=== PATIENT | female | born 1990 | race African-American/Black ===

== ENCOUNTER 2016-05-17 19:41 | Emergency (ER) | payer OTHER ==
--- NOTE | ~2016-05-17 | CT71 ---
[facility] A Service of [facility] RADIOLOGY TEXT RESULTS PATIENT: HUBER PACHECO LOCATION: [place] : 88 UNIT #: [id number] AGE: [address]: Stas Martin MD SEX: F ORDER DR: [id number] [facility] [address] [place], [place] [address] [id number] E MR#: [id number] Acc #: [id number] NAME: HUBER PACHECO : 1990 SEX: F STUDY DATE/TIME: 05/17/2016 20:21 UNIT: [place] ROOM: STUDY DESCRIPTION: CT Head Wo Contrast Attending Physician: Stas Martin M.D. Ordering Physician: Stas Martin M.D. Primary Care Physician: [facility] MEDICAL IMAGING REPORT This report is preliminary unless electronic signature is present EXAM CT brain without contrast. DATE OF EXAM 05/17/2016 HISTORY Seizure today. Fell. TECHNIQUE NOTE: This CT exam was performed with one or more of the following radiation dose reduction techniques: automatic exposure control, adjustment of mA and/or kV according to patient size, and iterative reconstruction. FINDINGS Axial noncontrast images were obtained from the skull base to the vertex. Ventricular size and configuration are normal. There is no evidence of acute infarct or hemorrhage. There are no extra-axial fluid collections. No mass lesion or mass effect is seen. There are no skull fractures. IMPRESSION Normal noncontrast head CT. Dictated by... Tobin Rider M.D. THIS IS AN ELECTRONICALLY VERIFIED REPORT Tobin Rider M.D. at 05/19/2016 12:05 AM ANNIE/maico TD: 05/17/2016 23:20 [facility] A Service of [facility] RADIOLOGY TEXT RESULTS PATIENT: HUBER PACHECO LOCATION: [place] : 88 UNIT #: [id number] AGE: [address]: Stas Martin MD SEX: F ORDER DR: JOB #: [id number] MEDICAL IMAGING REPORT COPY
--- NOTE | ~2016-05-17 | EKG ---
PATIENT: HUBER PACHECO UNIT #: [id number] Ventricular Rate: 74 BPM Atrial Rate: 74 BPM P-R Interval: 168 ms QRS Duration: 86 ms Q-T Interval: 408 ms QTC Calculation(Bezet): 452 ms P [place]: 6 degrees Calculated R [place]: 24 degrees Calculated T [place]: 15 degrees Diagnosis Line: Normal sinus rhythm with sinus arrhythmia Diagnosis Line: Minimal voltage criteria for LVH, may be normal Diagnosis Line: variant Diagnosis Line: Borderline ECG Diagnosis Line: When compared with ECG of 17-MAY-2016 21:32, Diagnosis Line: (unconfirmed) Diagnosis Line: No significant change was found Diagnosis Line: Confirmed by LEELEE BERNARD MD ([id number]) on Diagnosis Line: 05/18/2016 10:51:21 PM INTERPRETING MD: BEE
[2016-05-17 19:53] LABS: BASOPHIL% 0.6 % (0-2.5); EOSINOPHIL% 0.6 % (0.0-7.0); HEMATOCRIT 36.9 % (35.0-45.0); HEMOGLOBIN 11.7 gm/dL (12.0-16.0); LYMPHOCYTE# 1.2 X10e3 (1.0-3.5); LYMPHOCYTE% 16.8 % (17.0-45.0); MEAN CELL VOLUME 70.8 FL (83-96); MEAN CORPUSCULAR HEMOGLOBIN 22.4 PG (28-34); MEAN CORPUSCULAR HGB CONC 31.7 g/dL (30-36); MEAN PLATELET VOLUME 7.8 FL (6.5-11.5); MONOCYTE# 0.4 X10e3 (0-1.0); NEUTROPHIL# 5.5 X10e3 (1.5-7.1); PLATELET COUNT 269 X10e3 (140-420); RED BLOOD COUNT 5.21 X10e (3.90-5.30); RED CELL DISTRIBUTION WIDTH 15.4 % (11.0-15.5); WHITE BLOOD COUNT 7.2 X10e3 (4.0-10.5)
[2016-05-17 19:57] LABS: DIFF IND NO
[2016-05-17 20:11] LABS: BLOOD UREA NITROGEN 7 mg/dL (9-23); CALCIUM SERUM 8.6 mg/dL (8.4-10.2); CARBON DIOXIDE 23 mmol/L (22-31); CHLORIDE 105 mmol/L (100-111); CREATININE SERUM 0.7 mg/dL (0.6-1.4); GLOM FILT RATE Estimated ABOVE60 mL/min (>60); GLUCOSE FASTING 182 mg/dL (70-110); SODIUM 137 mmol/L (135-145)
[2016-05-17 20:19] LABS: AMPHETAMINE NEG (NEG); BARBITURATES NEG (NEG); BENZODIAZEPINES NEG (NEG); COCAINE NEG (NEG); MARIJUANA NEG (NEG); OPIATES NEG (NEG); TRICYCLIC ANTIDEPRESSANTS NEG (NEG); U METHADONE NEG (NEG)
== END 2016-05-17 21:58 | disposition home or self-care (01) ==
LOC: CED 19:41
PROVIDERS: Emergency Medicine
DX: F41.9 Anxiety disorder, unspecified (principal); E11.9 Type 2 diabetes mellitus without complications; J45.909 Unspecified asthma, uncomplicated
CPT/HCPCS: 36415; 70450; 80048; 80307; 82947; 84703; 85025; 93005; 99284

== ENCOUNTER 2016-05-31 20:20 | Emergency (ER) | payer OTHER ==
--- NOTE | ~2016-05-31 | EKG ---
PATIENT: HUBER PACHECO UNIT #: [id number] Ventricular Rate: 91 BPM Atrial Rate: 91 BPM P-R Interval: 152 ms QRS Duration: 72 ms Q-T Interval: 346 ms QTC Calculation(Bezet): 425 ms P [place]: 43 degrees Calculated R [place]: 39 degrees Calculated T [place]: 33 degrees Diagnosis Line: Normal sinus rhythm with sinus arrhythmia Diagnosis Line: Normal ECG Diagnosis Line: No previous ECGs available Diagnosis Line: Confirmed by ISAIAH DIAZ MD ([id number]) on Diagnosis Line: 06/02/2016 12:04:34 AM INTERPRETING MD: JOE DELA CRUZ
== END 2016-05-31 21:12 | disposition home or self-care (01) ==
LOC: CED 20:20
DX: F41.0 Panic disorder [episodic paroxysmal anxiety] (principal); F41.9 Anxiety disorder, unspecified; E11.9 Type 2 diabetes mellitus without complications; J45.909 Unspecified asthma, uncomplicated
CPT/HCPCS: 93005; 99283

== ENCOUNTER 2016-06-23 06:02 | Emergency (ER) | payer OTHER ==
[2016-06-23 03:31] LABS: BASOPHIL# 0.1 X10e3 (0-0.3); BASOPHIL% 1.1 % (0-2.5); EOSINOPHIL% 0.5 % (0.0-7.0); HEMATOCRIT 40.5 % (35.0-45.0); HEMOGLOBIN 12.8 gm/dL (12.0-16.0); LYMPHOCYTE# 2.2 X10e3 (1.0-3.5); LYMPHOCYTE% 27.4 % (17.0-45.0); MEAN CELL VOLUME 71.2 FL (83-96); MEAN CORPUSCULAR HEMOGLOBIN 22.5 PG (28-34); MEAN CORPUSCULAR HGB CONC 31.6 g/dL (30-36); MONOCYTE# 0.5 X10e3 (0-1.0); MONOCYTE% 5.8 % (3.0-12.0); NEUTROPHIL# 5.2 X10e3 (1.5-7.1); NEUTROPHIL% 65.2 % (40-75); PLATELET COUNT 285 X10e3 (140-420); RED BLOOD COUNT 5.69 X10e (3.90-5.30)
[2016-06-23 03:34] LABS: DIFF IND NO
[2016-06-23 03:58] LABS: ALBUMIN SERUM 4.1 g/dL (3.5-5.0); BILIRUBIN, DIRECT 0.1 mg/dL (0.0-0.2); BILIRUBIN,INDIRECT 0.4 mg/dL (0.0-0.9); BILIRUBIN,TOTAL 0.5 mg/dL (0.2-2.0); CALCIUM SERUM 9.3 mg/dL (8.4-10.2); CREATININE SERUM 0.4 mg/dL (0.6-1.4); GLOM FILT RATE Estimated 165.5 mL/min (>60); POTASSIUM 4.3 mmol/L (3.5-5.1); PROTEIN TOTAL SERUM 7.9 g/dL (6.0-8.3)
== END 2016-06-23 06:10 | disposition left against medical advice (07) ==
LOC: CED 06:02
PROVIDERS: Student in an Organized Health Care Education/Training Program
DX: Z53.21 Procedure and treatment not carried out due to patient leaving prior to being seen by health care provider (principal)
CPT/HCPCS: 80048; 80076; 82150; 83690; 85025

== ENCOUNTER 2016-07-02 14:15 | Emergency (ER) | payer OTHER ==
--- NOTE | ~2016-07-02 | EKG ---
PATIENT: HUBER PACHECO UNIT #: [id number] Ventricular Rate: 73 BPM Atrial Rate: 73 BPM P-R Interval: 146 ms QRS Duration: 82 ms Q-T Interval: 368 ms QTC Calculation(Bezet): 405 ms P [place]: 9 degrees Calculated R [place]: 49 degrees Calculated T [place]: 13 degrees Diagnosis Line: Normal sinus rhythm Diagnosis Line: Normal ECG Diagnosis Line: When compared with ECG of 31-MAY-2016 19:26, Diagnosis Line: No significant change was found Diagnosis Line: Confirmed by RALPH TURNER MD ([id number]) on 07/03/2016 Diagnosis Line: 8:00:03 PM INTERPRETING MD: YUE DELA CRUZ
--- NOTE | ~2016-07-02 | CR63 ---
[facility] A Service of [facility] & [facility] RADIOLOGY TEXT RESULTS PATIENT: HUBER PACHECO LOCATION: [facility] : [birth year] UNIT #: [id number] AGE: [address]: Jia Garcia SEX: F ORDER DR: [id number] [facility] [address] [place], [place] [address] [id number] E MR#: [id number] Acc #: [id number] NAME: HUBER PACHECO : 1990 SEX: F STUDY DATE/TIME: 07/02/2016 14:34 UNIT: [facility] ROOM: STUDY DESCRIPTION: CR Chest 2 View Attending Physician: Jia Garcia P.A.-C. Ordering Physician: Jia Garcia P.A.-C. Primary Care Physician: [facility] MEDICAL IMAGING REPORT This report is preliminary unless electronic signature is present EXAM PA and lateral chest HISTORY Chest pain after running and fever for 2 days. FINDINGS A PA and lateral view of the chest were obtained and compared to 05/09/2016. The heart size and vascularity are normal and the lungs are clear and the bones are unremarkable. IMPRESSION No active disease. Dictated by... Sanjay Green M.D. THIS IS AN ELECTRONICALLY VERIFIED REPORT Sanjay Green M.D. at 07/02/2016 3:58 PM Collins TD: 07/02/2016 15:21 JOB #: [id number] MEDICAL IMAGING REPORT Page 1 of 1 COPY
[2016-07-02 14:44] LABS: BASOPHIL% 0.5 % (0-2.5); DIFF IND NO; EOSINOPHIL% 0.7 % (0.0-7.0); HEMATOCRIT 37.8 % (35.0-45.0); HEMOGLOBIN 11.9 gm/dL (12.0-16.0); LYMPHOCYTE# 1.7 X10e3 (1.0-3.5); LYMPHOCYTE% 31.7 % (17.0-45.0); MEAN CELL VOLUME 71.2 FL (83-96); MEAN CORPUSCULAR HEMOGLOBIN 22.4 PG (28-34); MEAN CORPUSCULAR HGB CONC 31.4 g/dL (30-36); MEAN PLATELET VOLUME 7.8 FL (6.5-11.5); MONOCYTE# 0.4 X10e3 (0-1.0); MONOCYTE% 7.6 % (3.0-12.0); NEUTROPHIL# 3.2 X10e3 (1.5-7.1); NEUTROPHIL% 59.5 % (40-75); PLATELET COUNT 285 X10e3 (140-420); RED BLOOD COUNT 5.31 X10e (3.90-5.30); RED CELL DISTRIBUTION WIDTH 15.8 % (11.0-15.5); WHITE BLOOD COUNT 5.4 X10e3 (4.0-10.5)
[2016-07-02 14:44] LABS: POC - CKMB <1.0 ng/mL (0.0-7.9); POC - TROPONIN <0.05 ng/mL (<=0.05)
[2016-07-02 15:09] LABS: BUN/CREATININE RATIO 11.25; CREATININE SERUM 0.8 mg/dL (0.6-1.4); GLOM FILT RATE Estimated 117.2 mL/min (>60); POTASSIUM 4.1 mmol/L (3.5-5.1)
== END 2016-07-02 15:55 | disposition home or self-care (01) ==
LOC: CFTX 14:15
PROVIDERS: Physician Assistant
DX: J98.01 Acute bronchospasm (principal); E11.9 Type 2 diabetes mellitus without complications; G40.909 Epilepsy, unspecified, not intractable, without status epilepticus
CPT/HCPCS: 36415; 71020; 80048; 82553; 82947; 84484; 85025; 93005; 94640; 96372; 99284; J2930

== ENCOUNTER 2016-07-09 16:43 | Emergency (ER) | payer OTHER ==
[2016-07-09 16:16] LABS: URINE SOURCE CLEAN CATCH
[2016-07-09 16:25] LABS: URINE APPEARANCE CLEAR; URINE BILIRUBIN NEG (NEG); URINE BLOOD 2+ (NEG); URINE COLOR YELLOW; URINE GLUCOSE NEG (NEG); URINE KETONE NEG (NEG); URINE LEUKOCYTE ESTERASE TRACE (NEG); URINE NITRATE NEG (NEG); URINE PH 7.5 (5-8); URINE PROTEIN NEG (NEG); URINE SPECIFIC GRAVITY 1.014 (1.003-1.035); URINE UROBILINOGEN 0.2 MG/DL (NEG)
[2016-07-09 16:26] LABS: BASOPHIL% 0.9 % (0-2.5); EOSINOPHIL% 0.7 % (0.0-7.0); HEMOGLOBIN 11.3 gm/dL (12.0-16.0); LYMPHOCYTE# 1.7 X10e3 (1.0-3.5); LYMPHOCYTE% 31.8 % (17.0-45.0); MEAN CELL VOLUME 70.5 FL (83-96); MEAN CORPUSCULAR HEMOGLOBIN 22.6 PG (28-34); MEAN CORPUSCULAR HGB CONC 32.1 g/dL (30-36); MEAN PLATELET VOLUME 7.5 FL (6.5-11.5); MONOCYTE# 0.4 X10e3 (0-1.0); MONOCYTE% 7.3 % (3.0-12.0); NEUTROPHIL# 3.2 X10e3 (1.5-7.1); NEUTROPHIL% 59.3 % (40-75); PLATELET COUNT 284 X10e3 (140-420); RED BLOOD COUNT 4.97 X10e (3.90-5.30); RED CELL DISTRIBUTION WIDTH 15.5 % (11.0-15.5); WHITE BLOOD COUNT 5.4 X10e3 (4.0-10.5)
[2016-07-09 16:28] LABS: CULTURE INDICATED? YES; URINE BACTERIA AUWI 1+ (NEGATIVE); URINE SQUAMOUS EPITHELIAL CELL FEW /[HPF]; UWBCS1 AUWI 0-2 (0-5)
[2016-07-09 16:31] LABS: DIFF IND NO
[2016-07-09 16:46] LABS: ALBUMIN SERUM 3.7 g/dL (3.5-5.0); ALKALINE PHOSPHATASE 96 U/L (32-92); ALT (SGPT) 20 U/L (10-40); AST (SGOT) 20 U/L (10-42); BILIRUBIN,TOTAL 0.3 mg/dL (0.2-2.0); BLOOD UREA NITROGEN 8 mg/dL (9-23); BUN/CREATININE RATIO 11.42; CALCIUM SERUM 9.1 mg/dL (8.4-10.2); CARBON DIOXIDE 25 mmol/L (22-31); CHLORIDE 102 mmol/L (100-111); CREATININE SERUM 0.7 mg/dL (0.6-1.4); GLOM FILT RATE Estimated 137.6 mL/min (>60); GLUCOSE FASTING 110 mg/dL (70-110); POTASSIUM 3.8 mmol/L (3.5-5.1); PROTEIN TOTAL SERUM 7.2 g/dL (6.0-8.3); SODIUM 137 mmol/L (135-145)
[2016-07-09 16:48] LABS: BILIRUBIN, DIRECT <0.1 mg/dL (0.0-0.2); BILIRUBIN,INDIRECT 0.2 mg/dL (0.0-0.9)
== END 2016-07-09 17:08 | disposition home or self-care (01) ==
LOC: CFTX 16:43
PROVIDERS: Physician Assistant
DX: N30.00 Acute cystitis without hematuria (principal); E11.9 Type 2 diabetes mellitus without complications; J45.909 Unspecified asthma, uncomplicated; F41.9 Anxiety disorder, unspecified
CPT/HCPCS: 36415; 80048; 80076; 81003; 84703; 85025; 87086; 99283

== ENCOUNTER 2016-07-14 20:22 | Emergency (ER) | payer OTHER ==
--- NOTE | ~2016-07-14 | CR58 ---
[facility] A Service of [facility] & [facility] RADIOLOGY TEXT RESULTS PATIENT: HUBER PACHECO LOCATION: [facility] : [birth year] UNIT #: [id number] AGE: [address]: Tyrone Dowling DO SEX: F ORDER DR: [id number] [facility] [address] [place], [place] [address] [id number] E MR#: [id number] Acc #: [id number] NAME: HUBER PACHECO : 1990 SEX: F STUDY DATE/TIME: 07/14/2016 19:34 UNIT: [facility] ROOM: STUDY DESCRIPTION: CR Cervical Spine 2 or 3 Views Attending Physician: Tyrone Dowling D.O. Ordering Physician: Tyrone Dowling D.O. Primary Care Physician: Lyudmila [facility] MEDICAL IMAGING REPORT This report is preliminary unless electronic signature is present EXAM Cervical spine 5 views, 07/14/2016 HISTORY Neck pain table fell on top of patient at 10:00 a.m. this morning. FINDINGS PA and lateral examination of the chest upright shows a good expansion of the parenchyma with a normal distribution of the pulmonary vascularity. There is no indication of congestion, effusion, infiltrate, tumor, or nodular density. The pleural reflections and diaphragmatic contours are normal. The cardiac silhouette and mediastinal anatomy is within normal limits. IMPRESSION Normal chest. Dictated by... Elijah Mckenzie M.D. THIS IS AN ELECTRONICALLY VERIFIED REPORT Elijah Mckenzie M.D. at 07/15/2016 7:30 AM Arin TD: 07/14/2016 23:28 JOB #: [id number] MEDICAL IMAGING REPORT Page 1 of 1 COPY
--- NOTE | ~2016-07-14 | EKG ---
PATIENT: HUBER PACHECO UNIT #: [id number] Ventricular Rate: 93 BPM Atrial Rate: 93 BPM P-R Interval: 148 ms QRS Duration: 72 ms Q-T Interval: 358 ms QTC Calculation(Bezet): 445 ms P [place]: 41 degrees Calculated R [place]: 47 degrees Calculated T [place]: 15 degrees Diagnosis Line: Normal sinus rhythm with sinus arrhythmia Diagnosis Line: Normal ECG Diagnosis Line: When compared with ECG of 02-JUL-2016 14:51, Diagnosis Line: No significant change was found Diagnosis Line: Confirmed by RALPH TURNER MD ([id number]) on 07/14/2016 Diagnosis Line: 10:36:28 PM INTERPRETING MD: YUE DELA CRUZ
--- NOTE | ~2016-07-14 | CT71 ---
[facility] A Service of [facility] RADIOLOGY TEXT RESULTS PATIENT: HUBER PACHECO LOCATION: [place] : [birth year] UNIT #: [id number] AGE: [address]: Tyrone Dowling DO SEX: F ORDER DR: [id number] [facility] [address] [place], [place] [address] [id number] E MR#: [id number] Acc #: [id number] NAME: HUBER PACHECO : 1990 SEX: F STUDY DATE/TIME: 07/14/2016 19:17 UNIT: [facility] ROOM: STUDY DESCRIPTION: CT Head Wo Contrast Attending Physician: Tyrone Dowling D.O. Ordering Physician: Tyrone Dowling D.O. Primary Care Physician: [facility] MEDICAL IMAGING REPORT This report is preliminary unless electronic signature is present EXAM Head CT without contrast, 07/14/2016. HISTORY Headache, status post fall on steps, hit head today. No loss of consciousness. This CT exam was performed with one or more of the following radiation dose reduction techniques: automatic exposure control, adjustment of mA and/or kV according to patient size, and iterative reconstruction. FINDINGS Axial noncontrast images were obtained from the skull base to the vertex. Ventricular size and configuration are normal. There is no evidence of acute infarct or hemorrhage. There are no extra-axial fluid collections. No mass lesion or mass effect is seen. There are no skull fractures. IMPRESSION Normal noncontrast head CT. Dictated by... Elijah Mckenzie M.D. THIS IS AN ELECTRONICALLY VERIFIED REPORT Elijah Mckenzie M.D. at 07/15/2016 7:30 AM ARNAV/miah TD: 07/14/2016 23:13 JOB #: [id number] MEDICAL IMAGING REPORT [facility] A Service [facility] RADIOLOGY TEXT RESULTS PATIENT: HUBER PACHECO LOCATION: [place] : [birth year] UNIT #: [id number] AGE: [address]: Tyrone Dowling DO SEX: F ORDER DR: Page 1 of 1 COPY
--- NOTE | ~2016-07-14 | CT57 ---
[facility] A Service of [facility] RADIOLOGY TEXT RESULTS PATIENT: HUBER PACHECO LOCATION: [facility] : [birth year] UNIT #: [id number] AGE: [address]: Tyrone Dowling DO SEX: F ORDER DR: [id number] [facility] [address] [place], [place] [address] [id number] E MR#: [id number] Acc #: [id number] NAME: HUBER PACHECO : 1990 SEX: F STUDY DATE/TIME: 07/14/2016 19:22 UNIT: [facility] ROOM: STUDY DESCRIPTION: CT Chest Wo Cont Attending Physician: Tyrone Dowling D.O. Ordering Physician: Tyrone Dowling D.O. Primary Care Physician: [facility] MEDICAL IMAGING REPORT This report is preliminary unless electronic signature is present EXAM CT chest without contrast. HISTORY Chest pain after table fell on patient to day. TECHNIQUE This CT exam was performed with one or more of the following radiation dose reduction techniques: automatic exposure control, adjustment of mA and/or kV according to patient size, and iterative reconstruction. FINDINGS There is no pulmonary infiltrate, pleural effusion, pneumothorax or suspicious nodule. There is no mediastinal mass or adenopathy. Images of the upper abdomen are normal. The bony structures are normal. IMPRESSION Normal negative unenhanced chest CT. Dictated by... Jonah Daniel M.D. THIS IS AN ELECTRONICALLY VERIFIED REPORT Jonah Daniel M.D. at 07/16/2016 9:42 AM SHAWN/murray TD: 07/14/2016 23:10 JOB #: [id number] MEDICAL IMAGING REPORT Page 1 of 1 COPY
[2016-07-14 16:36] LABS: BASOPHIL# 0.1 X10e3 (0-0.3); EOSINOPHIL# 0.1 X10e3 (0-0.7); HEMATOCRIT 39.4 % (35.0-45.0); HEMOGLOBIN 12.6 gm/dL (12.0-16.0); LYMPHOCYTE# 1.5 X10e3 (1.0-3.5); LYMPHOCYTE% 26.9 % (17.0-45.0); MEAN CELL VOLUME 70.7 FL (83-96); MEAN CORPUSCULAR HEMOGLOBIN 22.7 PG (28-34); MEAN CORPUSCULAR HGB CONC 32.1 g/dL (30-36); MEAN PLATELET VOLUME 7.6 FL (6.5-11.5); MONOCYTE# 0.3 X10e3 (0-1.0); MONOCYTE% 5.2 % (3.0-12.0); NEUTROPHIL# 3.6 X10e3 (1.5-7.1); NEUTROPHIL% 65.9 % (40-75); PLATELET COUNT 292 X10e3 (140-420); RED BLOOD COUNT 5.57 X10e (3.90-5.30); RED CELL DISTRIBUTION WIDTH 15.5 % (11.0-15.5); WHITE BLOOD COUNT 5.5 X10e3 (4.0-10.5)
[2016-07-14 16:37] LABS: DIFF IND NO
[2016-07-14 16:45] LABS: PARTIAL THROMBOPLASTIN TIME 26.4 SECONDS (23.5-31.3); PROTHROMBIN TIME (PATIENT) 10.3 SECONDS (9.6-11.5)
[2016-07-14 17:00] LABS: ALBUMIN SERUM 4.1 g/dL (3.5-5.0); ALKALINE PHOSPHATASE 120 U/L (32-92); ALT (SGPT) 20 U/L (10-40); AST (SGOT) 21 U/L (10-42); BILIRUBIN,TOTAL 0.4 mg/dL (0.2-2.0); BLOOD UREA NITROGEN 6 mg/dL (9-23); BUN/CREATININE RATIO 8.57; CALCIUM SERUM 9.7 mg/dL (8.4-10.2); CARBON DIOXIDE 26 mmol/L (22-31); CHLORIDE 101 mmol/L (100-111); CREATININE SERUM 0.7 mg/dL (0.6-1.4); GLOM FILT RATE Estimated 137.6 mL/min (>60); GLUCOSE FASTING 209 mg/dL (70-110); POTASSIUM 4.5 mmol/L (3.5-5.1); PROTEIN TOTAL SERUM 7.7 g/dL (6.0-8.3); SODIUM 138 mmol/L (135-145)
[2016-07-14 17:03] LABS: BILIRUBIN, DIRECT <0.1 mg/dL (0.0-0.2); BILIRUBIN,INDIRECT 0.3 mg/dL (0.0-0.9)
== END 2016-07-14 21:17 | disposition home or self-care (01) ==
LOC: CED 20:22
DX: S09.90XA Unspecified injury of head, initial encounter (principal); S13.4XXA Sprain of ligaments of cervical spine, initial encounter; S20.219A Contusion of unspecified front wall of thorax, initial encounter; I10 Essential (primary) hypertension; W01.0XXA Fall on same level from slipping, tripping and stumbling without subsequent striking against object, initial encounter
CPT/HCPCS: 70450; 71250; 72040; 80048; 80076; 85025; 85610; 85730; 93005; 96372; 99284; J1885

== ENCOUNTER 2016-07-26 01:56 | Emergency (ER) | payer OTHER | END 2016-07-26 02:00 | disposition home or self-care (01) | LOC: CED 01:56 | DX: K59.00 Constipation, unspecified (principal); E11.9 Type 2 diabetes mellitus without complications; J45.909 Unspecified asthma, uncomplicated; F41.9 Anxiety disorder, unspecified | CPT/HCPCS: 99283 ==

== ENCOUNTER 2016-08-06 02:22 | Emergency (ER) | payer OTHER ==
--- NOTE | ~2016-08-06 | CR63 ---
[facility] A Service of [facility] RADIOLOGY TEXT RESULTS PATIENT: HUBER PACHECO LOCATION: [place] : [birth year] UNIT #: [id number] AGE: [address]: Lis Brown APRN SEX: F ORDER DR: [id number] [facility] [address] [place], [place] [address] [id number] E MR#: [id number] Acc #: [id number] NAME: HUBER PACHECO : 1990 SEX: F STUDY DATE/TIME: 08/06/2016 03:09 UNIT: [facility] ROOM: STUDY DESCRIPTION: CR Chest 2 View Attending Physician: Lis Brown A.P.R.N. Ordering Physician: Lis Brown A.P.R.N. Primary Care Physician: [facility] MEDICAL IMAGING REPORT This report is preliminary unless electronic signature is present EXAM Chest x-ray, 08/06/2016 at 03:09 INDICATION Cough, chest pain and headache for 2-3 days. COMPARISON 07/02/2016 FINDINGS PA and lateral examination of the chest upright shows a good expansion of the parenchyma with a normal distribution of the pulmonary vascularity. There is no indication of congestion, effusion, infiltrate, tumor, or nodular density. The pleural reflections and diaphragmatic contours are normal. The cardiac silhouette and mediastinal anatomy is within normal limits. IMPRESSION Normal chest. Dictated by... Shahzad Patton Jr., M.D. THIS IS AN ELECTRONICALLY VERIFIED REPORT Shahzad Patton Jr., M.D. at 08/06/2016 5:56 AM RIGO/miah TD: 08/06/2016 05:19 JOB #: [id number] MEDICAL IMAGING REPORT [facility] A Service of [facility] RADIOLOGY TEXT RESULTS PATIENT: HUBER PAHCECO LOCATION: [facility] : 88 UNIT #: [id number] AGE: [address]: Lis Brown APRN SEX: F ORDER DR: Page 1 of 1 COPY
--- NOTE | ~2016-08-06 | EKG ---
PATIENT: HUBER PACHECO UNIT #: [id number] Ventricular Rate: 100 BPM Atrial Rate: 100 BPM P-R Interval: 160 ms QRS Duration: 72 ms Q-T Interval: 334 ms QTC Calculation(Bezet): 430 ms P [place]: 44 degrees Calculated R [place]: 35 degrees Calculated T [place]: 14 degrees Diagnosis Line: Normal sinus rhythm Diagnosis Line: Nonspecific T wave abnormality Diagnosis Line: Otherwise normal ECG Diagnosis Line: Diagnosis Line: Confirmed by RITA PELAEZ MD ([id number]) on 08/07/2016 Diagnosis Line: 10:35:22 AM INTERPRETING MD: BENIGNO DELA CRUZ
[2016-08-06 03:30] LABS: EOSINOPHIL% 1.2 % (0.0-7.0); HEMATOCRIT 37.5 % (35.0-45.0); HEMOGLOBIN 12.4 gm/dL (12.0-16.0); LYMPHOCYTE# 1.1 X10e3 (1.0-3.5); LYMPHOCYTE% 27.5 % (17.0-45.0); MEAN CELL VOLUME 69.8 FL (83-96); MEAN CORPUSCULAR HGB CONC 32.9 g/dL (30-36); MEAN PLATELET VOLUME 7.8 FL (6.5-11.5); MONOCYTE# 0.3 X10e3 (0-1.0); MONOCYTE% 8.3 % (3.0-12.0); NEUTROPHIL# 2.4 X10e3 (1.5-7.1); PLATELET COUNT 245 X10e3 (140-420); RED BLOOD COUNT 5.37 X10e (3.90-5.30); RED CELL DISTRIBUTION WIDTH 15.5 % (11.0-15.5); WHITE BLOOD COUNT 3.9 X10e3 (4.0-10.5)
[2016-08-06 03:31] LABS: DIFF IND NO
[2016-08-06 03:34] LABS: POC - CKMB <1.0 ng/mL (0.0-7.9); POC - TROPONIN <0.05 ng/mL (<=0.05)
[2016-08-06 03:42] LABS: AMPHETAMINE NEG (NEG); BARBITURATES NEG (NEG); BENZODIAZEPINES NEG (NEG); COCAINE NEG (NEG); MARIJUANA NEG (NEG); OPIATES NEG (NEG); TRICYCLIC ANTIDEPRESSANTS NEG (NEG); U METHADONE NEG (NEG)
[2016-08-06 03:47] LABS: PARTIAL THROMBOPLASTIN TIME 25.8 SECONDS (23.5-31.3)
[2016-08-06 03:57] LABS: ALBUMIN SERUM 4.1 g/dL (3.5-5.0); BILIRUBIN, DIRECT 0.1 mg/dL (0.0-0.2); BILIRUBIN,INDIRECT 0.3 mg/dL (0.0-0.9); BILIRUBIN,TOTAL 0.4 mg/dL (0.2-2.0); BUN/CREATININE RATIO 12.5; CALCIUM SERUM 9.5 mg/dL (8.4-10.2); CREATININE SERUM 0.8 mg/dL (0.6-1.4); GLOM FILT RATE Estimated 117.2 mL/min (>60); POTASSIUM 4.1 mmol/L (3.5-5.1); PROTEIN TOTAL SERUM 7.7 g/dL (6.0-8.3)
[2016-08-06 04:19] LABS: URINE SOURCE CLEAN CATCH
[2016-08-06 04:22] LABS: URINE APPEARANCE CLEAR; URINE BILIRUBIN NEG (NEG); URINE BLOOD NEG (NEG); URINE COLOR YELLOW; URINE GLUCOSE NEG (NEG); URINE KETONE NEG (NEG); URINE LEUKOCYTE ESTERASE NEG (NEG); URINE NITRATE NEG (NEG); URINE PH 5.5 (5-8); URINE PROTEIN NEG (NEG); URINE SPECIFIC GRAVITY 1.016 (1.003-1.035); URINE UROBILINOGEN 0.2 MG/DL (NEG)
[2016-08-06 04:27] LABS: CULTURE INDICATED? NO
== END 2016-08-06 06:34 | disposition home or self-care (01) ==
LOC: CED 02:22
PROVIDERS: Nurse Practitioner
DX: R07.89 Other chest pain (principal); J06.9 Acute upper respiratory infection, unspecified; E11.9 Type 2 diabetes mellitus without complications; J45.909 Unspecified asthma, uncomplicated
CPT/HCPCS: 36415; 71020; 80048; 80076; 80307; 81003; 82150; 82553; 82947; 83690; 84484; 84703; 85025; 85379; 85610; 85730; 93005; 96374; 99284; J1885

== ENCOUNTER 2016-08-14 18:04 | Emergency (ER) | payer OTHER ==
[2016-08-14 18:54] LABS: URINE SOURCE CLEAN CATCH
[2016-08-14 19:22] LABS: URINE APPEARANCE CLOUDY; URINE BILIRUBIN NEG (NEG); URINE BLOOD TRACE (NEG); URINE COLOR YELLOW; URINE GLUCOSE NEG (NEG); URINE KETONE NEG (NEG); URINE LEUKOCYTE ESTERASE TRACE (NEG); URINE NITRATE NEG (NEG); URINE PH 7.5 (5-8); URINE PROTEIN NEG (NEG); URINE SPECIFIC GRAVITY 1.015 (1.003-1.035)
[2016-08-14 19:24] LABS: CULTURE INDICATED? YES; URINE BACTERIA AUWI 2+ (NEGATIVE); URINE SQUAMOUS EPITHELIAL CELL MOD /[HPF]
[2016-08-14 23:24] LABS: BASOPHIL% 0.7 % (0-2.5); EOSINOPHIL% 0.5 % (0.0-7.0); HEMATOCRIT 38.6 % (35.0-45.0); HEMOGLOBIN 12.4 gm/dL (12.0-16.0); LYMPHOCYTE# 2.1 X10e3 (1.0-3.5); LYMPHOCYTE% 35.8 % (17.0-45.0); MEAN CELL VOLUME 70.6 FL (83-96); MEAN CORPUSCULAR HEMOGLOBIN 22.7 PG (28-34); MEAN CORPUSCULAR HGB CONC 32.1 g/dL (30-36); MEAN PLATELET VOLUME 7.9 FL (6.5-11.5); MONOCYTE# 0.3 X10e3 (0-1.0); MONOCYTE% 5.6 % (3.0-12.0); NEUTROPHIL# 3.4 X10e3 (1.5-7.1); NEUTROPHIL% 57.4 % (40-75); PLATELET COUNT 274 X10e3 (140-420); RED BLOOD COUNT 5.46 X10e (3.90-5.30); RED CELL DISTRIBUTION WIDTH 15.8 % (11.0-15.5); WHITE BLOOD COUNT 5.9 X10e3 (4.0-10.5)
[2016-08-14 23:26] LABS: DIFF IND NO
[2016-08-14 23:50] LABS: ALBUMIN SERUM 4.3 g/dL (3.5-5.0); BILIRUBIN, DIRECT 0.1 mg/dL (0.0-0.2); BILIRUBIN,INDIRECT 0.3 mg/dL (0.0-0.9); BILIRUBIN,TOTAL 0.4 mg/dL (0.2-2.0); BUN/CREATININE RATIO 7.5; CALCIUM SERUM 9.2 mg/dL (8.4-10.2); CREATININE SERUM 0.8 mg/dL (0.6-1.4); GLOM FILT RATE Estimated 117.2 mL/min (>60); POTASSIUM 3.9 mmol/L (3.5-5.1); PROTEIN TOTAL SERUM 7.9 g/dL (6.0-8.3)
== END 2016-08-15 00:30 | disposition home or self-care (01) ==
LOC: CED 18:04
PROVIDERS: Emergency Medicine
DX: R11.10 Vomiting, unspecified (principal); R19.7 Diarrhea, unspecified; E11.9 Type 2 diabetes mellitus without complications; J45.909 Unspecified asthma, uncomplicated
CPT/HCPCS: 80048; 80076; 81003; 82150; 83690; 84703; 85025; 87086; 96361; 96374; 96375; 99284; J2405

== ENCOUNTER 2016-09-03 21:19 | Emergency (ER) | payer OTHER ==
--- NOTE | ~2016-09-03 | EKG ---
PATIENT: HUBER PACHECO UNIT #: [id number] Ventricular Rate: 78 BPM Atrial Rate: 78 BPM P-R Interval: 162 ms QRS Duration: 74 ms Q-T Interval: 372 ms QTC Calculation(Bezet): 424 ms P [place]: 34 degrees Calculated R [place]: 37 degrees Calculated T [place]: 32 degrees Diagnosis Line: Normal sinus rhythm Diagnosis Line: Early repolarization Diagnosis Line: Normal ECG Diagnosis Line: No previous ECGs available Diagnosis Line: Confirmed by OSCAR CLAUDIO MD ([id number]) on Diagnosis Line: 09/05/2016 3:46:52 PM INTERPRETING MD: IVETT
--- NOTE | ~2016-09-03 | CR72 ---
[facility] A Service of [facility] RADIOLOGY TEXT RESULTS PATIENT: HUBER PACHECO LOCATION: [facility] : [birth year] UNIT #: [id number] AGE: [address]: Shahzad Green MD SEX: F ORDER DR: [id number] [facility] [address] [place], [place] [address] [id number] E MR#: [id number] Acc #: [id number] NAME: HUBER PACHECO : 1990 SEX: F STUDY DATE/TIME: 09/03/2016 22:12 UNIT: [facility] ROOM: STUDY DESCRIPTION: CR Chest Single View Portable Attending Physician: Shahzad Green M.D. Ordering Physician: Shahzad Green M.D. Primary Care Physician: [facility] MEDICAL IMAGING REPORT This report is preliminary unless electronic signature is present EXAM Portable chest. INDICATIONS Chest pain after exercising three times today. DATE OF EXAM 09/03 COMPARISON 08/23/16 FINDINGS A portable view of the chest is obtained. The heart size and vascularity are normal and the lungs are clear. The bones are unremarkable. IMPRESSION No active disease. Dictated by... Sanjay Green M.D. THIS IS AN ELECTRONICALLY VERIFIED REPORT Sanjay Green M.D. at 09/04/2016 1:21 PM ALVARO/maico TD: 09/03/2016 23:03 JOB #: [id number] MEDICAL IMAGING REPORT [facility] A Service of [facility] RADIOLOGY TEXT RESULTS PATIENT: HUBER PACHECO LOCATION: [facility] : [birth year] UNIT #: [id number] AGE: [address]: Shahzad Green MD SEX: F ORDER DR: Page 1 of 1 COPY
[2016-09-03 22:50] LABS: BASOPHIL# 0.1 X10e3 (0-0.3); BASOPHIL% 1.5 % (0-2.5); DIFF IND NO; EOSINOPHIL# 0.1 X10e3 (0-0.7); EOSINOPHIL% 0.7 % (0.0-7.0); HEMATOCRIT 39.1 % (35.0-45.0); HEMOGLOBIN 12.4 gm/dL (12.0-16.0); LYMPHOCYTE# 2.1 X10e3 (1.0-3.5); LYMPHOCYTE% 27.3 % (17.0-45.0); MEAN CELL VOLUME 71.5 FL (83-96); MEAN CORPUSCULAR HEMOGLOBIN 22.6 PG (28-34); MEAN CORPUSCULAR HGB CONC 31.6 g/dL (30-36); MEAN PLATELET VOLUME 7.8 FL (6.5-11.5); MONOCYTE# 0.6 X10e3 (0-1.0); MONOCYTE% 7.7 % (3.0-12.0); NEUTROPHIL# 4.8 X10e3 (1.5-7.1); NEUTROPHIL% 62.8 % (40-75); PLATELET COUNT 312 X10e3 (140-420); RED BLOOD COUNT 5.47 X10e (3.90-5.30); RED CELL DISTRIBUTION WIDTH 15.3 % (11.0-15.5); WHITE BLOOD COUNT 7.7 X10e3 (4.0-10.5)
[2016-09-03 23:01] LABS: POC - CKMB <1.0 ng/mL (0.0-7.9); POC - TROPONIN <0.05 ng/mL (<=0.05)
[2016-09-03 23:16] LABS: BILIRUBIN,TOTAL 0.4 mg/dL (0.2-2.0); CALCIUM SERUM 9.1 mg/dL (8.4-10.2); CREATININE SERUM 0.6 mg/dL (0.6-1.4); GLOM FILT RATE Estimated 144.8 mL/min (>60); POTASSIUM 4.1 mmol/L (3.5-5.1); PROTEIN TOTAL SERUM 7.8 g/dL (6.0-8.3)
[2016-09-03 23:18] LABS: BILIRUBIN, DIRECT 0.1 mg/dL (0.0-0.2); BILIRUBIN,INDIRECT 0.3 mg/dL (0.0-0.9)
[2016-09-04 01:26] LABS: POC - CKMB <1.0 ng/mL (0.0-7.9); POC - TROPONIN <0.05 ng/mL (<=0.05)
== END 2016-09-04 01:40 | disposition home or self-care (01) ==
LOC: CED 21:19
PROVIDERS: Emergency Medicine
DX: R07.89 Other chest pain (principal); F41.9 Anxiety disorder, unspecified; J45.909 Unspecified asthma, uncomplicated; Z79.899 Other long term (current) drug therapy; Z79.51 Long term (current) use of inhaled steroids
CPT/HCPCS: 36415; 71010; 80048; 80076; 82553; 83880; 84484; 84703; 85025; 85379; 93005; 99285

== ENCOUNTER 2016-09-08 14:31 | Observation (INO) | payer OTHER ==
--- NOTE | ~2016-09-08 | CT71 ---
[facility] A Service of [facility] RADIOLOGY TEXT RESULTS PATIENT: HUBER PACHECO LOCATION: [facility] : [birth year] UNIT #: [id number] AGE: [address]: JORDY BEARD MD SEX: F ORDER DR: [id number] [facility] [address] [place], [place] [address] [id number] I MR#: [id number] Acc #: [id number] NAME: HUBER PACHECO : 1990 SEX: F STUDY DATE/TIME: 09/08/2016 15:26 [facility] ROOM: [facility] STUDY DESCRIPTION: CT Head Wo Contrast Attending Physician: Jordy Beard M.D. Ordering Physician: Tyrone Dowling D.O. Primary Care Physician: [facility] MEDICAL IMAGING REPORT This report is preliminary unless electronic signature is present EXAM Noncontrast head CT. HISTORY Seizure today, history of seizure disorder. COMPARISON 07/14/2016 TECHNIQUE Axial noncontrast images were obtained from the skull base to the vertex. This CT exam was performed with one or more of the following radiation dose reduction techniques: Automatic exposure control, adjustment of mA and/or kV according to patient size, and iterative reconstruction. FINDINGS Ventricular size and configuration are normal. There is no evidence of acute infarct or hemorrhage. There are no extraaxial fluid collections. No mass lesion or mass effect is seen. There are no skull fractures. IMPRESSION Normal noncontrast head CT. Dictated by... Berto Black M.D. THIS IS AN ELECTRONICALLY VERIFIED REPORT Berto Black M.D. at 09/08/2016 11:18 PM RAKESH/negro TD: 09/08/2016 22:50 JOB #: [id number] [facility] A Service of [facility] RADIOLOGY TEXT RESULTS PATIENT: HUBER PACHECO LOCATION: [facility]- : [birth year] UNIT #: [id number] AGE: [address]: JORDY BEARD MD SEX: F ORDER DR: MEDICAL IMAGING REPORT Page 1 of 1 COPY
--- NOTE | ~2016-09-08 | CT52 ---
[facility] A Service of [facility] RADIOLOGY TEXT RESULTS PATIENT: HUBER PACHECO LOCATION: [facility]- : [birth year] UNIT #: [id number] AGE: [address]: Christina Mujica MD SEX: F ORDER DR: [id number] [facility] [address] [place], [place] [address] [id number] I MR#: [id number] Acc #: [id number] NAME: HUBER PACHECO : 1990 SEX: F STUDY DATE/TIME: 09/08/2016 15:26 UNIT: [address] ROOM: [facility] STUDY DESCRIPTION: CT Cervical Spine Wo Cont Attending Physician: Constantino Beard M.D. Ordering Physician: Tyrone Dowling D.O. Primary Care Physician: [facility] MEDICAL IMAGING REPORT This report is preliminary unless electronic signature is present EXAM CT cervical spine without contrast HISTORY Seizures today, head and neck discomfort onset today. COMPARISON C-spine series 07/14/2016. FINDINGS Thin-section axial images performed through the cervical spine without contrast. Multiplanar reconstructed images reviewed at a workstation. This CT exam was performed with one or more of the following radiation dose reduction techniques: Automatic exposure control, adjustment of mA and/or kV according to patient size, and iterative reconstruction. No fracture or malalignment. Craniocervical and cervicothoracic junctions appear normal. No significant stenosis. Upper thorax unremarkable. IMPRESSION Negative CT cervical spine. Dictated by... Berto Black M.D. THIS IS AN ELECTRONICALLY VERIFIED REPORT Berto Black M.D. at 09/09/2016 3:08 PM RAKESH/negro TD: 09/09/2016 00:40 JOB #: [id number] [facility] A Service of [facility] RADIOLOGY TEXT RESULTS PATIENT: HUBER PACHECO LOCATION: [facility]- : [birth year] UNIT #: [id number] AGE: [address]: Christina Mujica MD SEX: F ORDER DR: MEDICAL IMAGING REPORT Page 1 of 1 COPY
--- NOTE | ~2016-09-08 | CO ---
Unit #: [id number] #: [id number] Patient: HUBER PACHECO [id number] [facility] [address]. [place], [place] [address] [id number] I MR#: [id number] NAME: HUBER PACHECO ROOM: 329 Age: 25 Sex: F Admission Date: 09/08/2016 : 1990 Attending Physician: Christina Mujica M.D. Primary Care Physician: [facility] Consultation Date: 09/09/2016 CONSULTATION REPORT PRIMARY CARE PHYSICIAN [facility]. REASON FOR CONSULTATION Breakthrough seizure. PATIENT IDENTIFICATION This is a 25-year-old right-handed female, evaluated in room 329 at [facility]. SOURCE OF INFORMATION Obtained from the patient as well as the medical record. HISTORY OF PRESENT ILLNESS This is a 25-year-old right-handed female with a past medical history of seizure disorder, asthma, as well as diabetes mellitus type 2, who presents to [facility] with seizure activity. The patient states that she has had seizures since she was 12 years old. She states she was diagnosed and placed on Trileptal and has been on the same dose for several years 450 mg b.i.d. She says that she has not seen a neurologist since then until last year and she states that she saw Dr. Harjeet Pizarro in [facility]. She states that she had an EEG done and was also scheduled for an MRI, but was unable to tolerate and it was told that she would need an open MRI due to body habitus and claustrophobia. She has not yet had that MRI. She states that she woke up yesterday in her usual state of health, but begin to feel that she was having some heavy chest discomfort. She states that she laid down to take a nap and about 5 minutes later she states that she "had a panic attack." She states that she got out of bed and fell, however, she states that she was alert and could hear what was going on, but could not talk. She states this is typical of a seizure for her. She states that as she began to feel better, she called EMS who brought her to the ER for further evaluation. She states that she can feel this event coming on that she does not lose consciousness or lose awareness or having incontinence. She states that she had a tongue bite from yesterday, but I do not see any evidence of a tongue bite with any bruising or lesions on her tongue. She states that she never loses consciousness and never has that she shakes all over and that she is aware of what is going on around her, but that she cannot communicate. She apparently had some further similar episodes in the ER to be admitted for further evaluation. A call was placed to Dr. James and her medications were adjusted and she was admitted for further workup and we were asked to see the patient. The patient has had no further events since yesterday. She states she is ready to go home and that she feels back to her baseline. She had a head CT done without Unit #: [id number] #: [id number] Patient: HUBER PACHECO contrast on 08/29/2016 in the ER that was normal. She had a CT of the cervical spine without contrast since she fell and that was also negative. She denies any other exacerbating or alleviating factors or any other associated symptoms. She had an EKG done in the ER that showed normal sinus rhythm. Urine tox screen unremarkable. CBC and BMP have been reviewed as well are essentially unremarkable. Alcohol level is less than 5. Troponin is unremarkable. PAST MEDICAL HISTORY 1. Seizure disorder. Please see above. 2. Diabetes mellitus type 2 non-insulin dependent. 3. Aspirin. 4. Obesity. PAST SURGICAL HISTORY No past surgical history according to the patient. HOME MEDICATIONS Include Trileptal 450 mg b.i.d., as well as metformin 500 mg p.o. b.i.d. ALLERGIES No known drug allergies. FAMILY HISTORY Reviewed with the patient and noncontributory. SOCIAL HISTORY She denies alcohol use, tobacco use, or illicit drug use. REVIEW OF SYSTEMS 14-point review of systems was performed. Pertinent positives are as discussed above, otherwise negative. She denies any change in medications or recent illness or injury, fever or chills, headache or neck pain. PHYSICAL EXAMINATION VITAL SIGNS: Temperature 98.0, she has been afebrile, pulse 74, respirations 20, blood pressure 116/59, blood pressure in the ER on arrival was 135/70, oxygen saturation 100%, height 5 feet 2 inches, weight 207 pounds. BMI 37. NEUROLOGIC: She is awake, alert, and oriented to person, place, and time as well as events. She has no right or left confusion. No finger agnosia. No aphasia, dysarthria, or apraxia. Cranial nerve exam, she demonstrates full james of vision. Eyes are conjugate without ptosis or nystagmus. Extraocular movements are intact. Sensation of face and scalp is intact. Strength of the muscles of facial expression is intact. Hearing is intact to finger rub and conversation. Tongue is midline. Uvula is midline. Palate elevation is normal. Head turning and shoulder shrug are unremarkable. Neck is supple. Motor exam, she demonstrates normal bulk and tone. Strength is equal 5/5 in all extremities. Sensory exam is intact. Gait normal. Romberg negative. Reflexes 1/4. Toes are mute. Coordination, unremarkable. DIAGNOSTIC STUDIES IMAGING STUDIES: Please see above. LABORATORY RESULTS: Please see above. Her BMP specifically shows sodium of 136, potassium 3.5, chloride 103, CO2 of 25, glucose 128, BUN 8, creatinine 0.7, estimated GFR 137.6, calcium 8.8. Her initial BMP Unit #: [id number] #: [id number] Patient: HUBER PACHECO yesterday with liver shows an AST 21, ALT of 18, and alkaline phosphatase of 103, total protein 7.4, albumin 3.9, alcohol level less than 5. Her initial white blood cell count 6.4, hemoglobin 11.7, hematocrit 36.9, platelet count 269. Repeat white blood cell count 6.9. IMPRESSION 1. Seizures versus pseudoseizures, stable. The patient states they are preceded by "panic attack." She denies loss of consciousness. Recommend outpatient epilepsy monitoring to further evaluate for epileptic versus nonepileptic events. 2. History of seizure disorder, maintained on Trileptal. 3. Diabetes mellitus type 2, stable. Continue metformin once discharged. 4. Asthma, stable. 5. Obesity. PLAN The patient was seen by Dr. James while she was in the EEG. Her EEG is normal per Dr. James. She is unable to have an MRI here. She requires a large bore versus open MRI due to claustrophobia. She has nothing on exam or per EEG to suggest an abnormality, but recommend an outpatient MRI as she does not have a baseline MRI per seizure protocol. CT of the head without contrast is unremarkable. The patient is okay to be discharged from a neurologic standpoint, and her medication has been adjusted. She has been increased to 600 mg of Trileptal b.i.d. Her liver function and white blood cell count are within normal limits. She has tolerated this medicine for several years. We will go up on this medicine rather than adding another medicine at this time. Therefore, we will discontinue the Vimpat that was started yesterday. The patient states that she does not have a regular neurologist, but did see Dr. Pizarro last year. I do not believe that she has ever followed up. She would likely benefit from epilepsy monitoring and again given concern for nonepileptic versus epileptic events, we will refer her to the [facility] Epilepsy Department for that reason. Otherwise, she can be discharged with seizure precautions, which include state driving laws that she is stable for discharge from a neurologic standpoint. Please call for any questions or issues. We thank you very much for allowing us to assist in the care of this patient. Please note no evidence of status epilepticus or [employer] infection or stroke. Dictated by... Mamie Joseph A.P.R.N. for Ronan Glez/edwina TD: 09/10/2016 06:49 JOB #: [id number] Unit #: [id number] #: [id number] Patient: HUBER PACHECO CONSULTATION REPORT Page 1 of 1 X Mamie Joseph APRN X CONSULTATION REPORT
--- NOTE | ~2016-09-08 | EE ---
Unit #: [id number] #: [id number] Patient: HUBER PACHECO [id number] [address] [address] [id number] I MR#: [id number] NAME: HUBER PACHECO : 1990 SEX: F STUDY DATE/TIME: 09/09/2016 UNIT: [id number] PCU ROOM: [address] [place] [address] DESCRIPTION: EEG Attending Physician: Christina Mujica M.D. Referring Physician: Constantino Beard M.D. Primary Care Physician: [facility] NEURODIAGNOSTICS REPORT PROCEDURE PERFORMED EEG. REASON FOR STUDY Multiple seizures. EEG DESCRIPTION This is an inpatient, digitally recorded, multi-montage, adult EEG with leads placed according to the International 10-20 system. Hyperventilation and photic stimulation were attempted. PROCEDURE REPORT This EEG shows 9- to 10-Hz (and sometimes even faster) posterior background. The patient did become drowsy, and alpha dropout was seen, but I did not see any deeper stages of sleep. Hyperventilation was attempted, but I did not see any significant change. Photic stimulation was attempted in intermittent stepwise pattern up to flash frequency of 30 Hz, but I did not see any driving, asymmetry or paroxysmal activity. No clinical events were seen. IMPRESSION This is an essentially normal adult, awake and drowsy EEG. An EEG like this does not rule out epilepsy. Clinical correlation is recommended. Dictated by... Ronan Glez/galina TD: 09/10/2016 07:53 JOB #: [id number] Unit #: [id number] #: [id number] Patient: HUBER PACHECO NEURODIAGNOSTICS REPORT Page 1 of 1 X Gokul James MD NEURODIAGNOSTICS REPORT
--- NOTE | ~2016-09-08 | HP ---
Unit #: [id number] #: [id number] Patient: HUBER PACHECO [id number] [address] [place], [place] [address] [id number] E MR#: [id number] NAME: HUBER PACHECO ROOM: Age: 25 Sex: F Admission Date: 09/08/2016 : 1990 Attending Physician: Tyrone Dowling D.O. Primary Care Physician: [facility] HISTORY AND PHYSICAL CHIEF COMPLAINT Seizures. HISTORY OF PRESENT ILLNESS The patient is a 25-year-old female with a history of seizures, diabetes, and asthma, brought to the emergency room with seizures. The patient had a seizure that lasted for one minute, and patient had recurrent seizures, one in the ambulance and one in the hospital. The patient stated that she has been on Trileptal and has not missed any medication. The patient stated that she had a similar episode back in March. The patient has had no change in the medication dosage or any new medications. Patient denies any headache. Patient denies any nausea, vomiting, fever, chills, or shortness of breath. PAST MEDICAL HISTORY 1. Seizures. 2. Diabetes. 3. Asthma. PAST SURGICAL HISTORY None. HOME MEDICATIONS 1. Trileptal. 2. Metformin. ALLERGIES No known drug allergies. SOCIAL HISTORY No history of smoking cigarettes, drinking alcohol, or any illicit drug abuse. FAMILY HISTORY Reviewed and none. REVIEW OF SYSTEMS A 14-point review of systems was performed and only pertinent positive findings are described above. The remaining are negative. PHYSICAL EXAMINATION GENERAL: Patient is lying in bed not in acute distress. VITAL SIGNS: Temperature 98.5, pulse 76, respiratory rate 26, blood pressure 135/70, and saturating 100% on room air. Unit #: [id number] #: [id number] Patient: HUBER PACHECO HEENT: Head atraumatic, normocephalic. Pupils equal, round, and reactive to light and accommodation. Extraocular movements are intact. NECK: Supple. LUNGS: Decreased air entry at the bases. HEART: Regular rate and rhythm. ABDOMEN: Soft. Positive bowel sounds. EXTREMITIES: No cyanosis, no clubbing. NEUROLOGIC: Alert, awake, and oriented. No gross focal motor deficit. DIAGNOSTIC STUDIES LABORATORY: Sodium 136, potassium 4, chloride 103, bicarb 26, glucose 199, BUN 9, creatinine 0.6, AST 21, ALT 18, alkaline phosphatase 103, and albumin 3.9. Troponin less than 0.05. WBC 6.4, hemoglobin 11.7, hematocrit 36.9, and platelets 269,000. Urine drug is negative. Urinalysis shows 100 glucose. Glucose is 189. IMAGING: CT of the head is negative. CT of the spine is negative. ASSESSMENT 1. Breakthrough seizures. 2. Diabetes mellitus. PLAN Admit the patient to observation with telemetry. Patient's case has been discussed with Neurology (1) by the ER physician and recommended for admission. Check EEG and MRI of the brain, and continue the Trileptal and Ativan for breakthrough seizures. Check the Trileptal level. Accu-Cheks a.c. and at bedtime and low-dose sliding scale. Further recommendations will follow. Dictated by Ronan Shore TD: 09/08/2016 19:10 JOB #: [id number] HISTORY AND PHYSICAL Page 1 of 1 X JORDY LENZ MD X HISTORY AND PHYSICAL
--- NOTE | ~2016-09-08 | EKG ---
PATIENT: HUBER PACHECO UNIT #: [id number] Ventricular Rate: 69 BPM Atrial Rate: 69 BPM P-R Interval: 156 ms QRS Duration: 82 ms Q-T Interval: 392 ms QTC Calculation(Bezet): 420 ms P [place]: 8 degrees Calculated R [place]: 28 degrees Calculated T [place]: 17 degrees Diagnosis Line: Normal sinus rhythm Diagnosis Line: Normal ECG Diagnosis Line: When compared with ECG of 03-SEP-2016 22:13, Diagnosis Line: No significant change was found Diagnosis Line: Confirmed by LEELEE BERNARD MD ([id number]) on Diagnosis Line: 09/08/2016 10:23:05 PM INTERPRETING MD: BEE
[2016-09-08 15:45] LABS: URINE SOURCE CLEAN CATCH
[2016-09-08 15:53] LABS: URINE APPEARANCE CLEAR; URINE BILIRUBIN NEG (NEG); URINE BLOOD NEG (NEG); URINE COLOR YELLOW; URINE GLUCOSE 100 MG/DL (NEG); URINE KETONE NEG (NEG); URINE LEUKOCYTE ESTERASE NEG (NEG); URINE NITRATE NEG (NEG); URINE PROTEIN NEG (NEG); URINE SPECIFIC GRAVITY 1.014 (1.003-1.035); URINE UROBILINOGEN 0.2 MG/DL (NEG)
[2016-09-08 15:58] LABS: CULTURE INDICATED? NO
[2016-09-08 16:09] LABS: AMPHETAMINE NEG (NEG); BARBITURATES NEG (NEG); BENZODIAZEPINES NEG (NEG); COCAINE NEG (NEG); MARIJUANA NEG (NEG); OPIATES NEG (NEG); TRICYCLIC ANTIDEPRESSANTS NEG (NEG); U METHADONE NEG (NEG)
[2016-09-08 16:21] LABS: BASOPHIL# 0.1 X10e3 (0-0.3); BASOPHIL% 0.8 % (0-2.5); EOSINOPHIL% 0.6 % (0.0-7.0); HEMATOCRIT 36.9 % (35.0-45.0); HEMOGLOBIN 11.7 gm/dL (12.0-16.0); LYMPHOCYTE# 1.6 X10e3 (1.0-3.5); LYMPHOCYTE% 24.6 % (17.0-45.0); MEAN CELL VOLUME 71.4 FL (83-96); MEAN CORPUSCULAR HEMOGLOBIN 22.6 PG (28-34); MEAN CORPUSCULAR HGB CONC 31.7 g/dL (30-36); MEAN PLATELET VOLUME 7.8 FL (6.5-11.5); MONOCYTE# 0.4 X10e3 (0-1.0); NEUTROPHIL# 4.4 X10e3 (1.5-7.1); PLATELET COUNT 269 X10e3 (140-420); RED BLOOD COUNT 5.16 X10e (3.90-5.30); RED CELL DISTRIBUTION WIDTH 15.4 % (11.0-15.5); WHITE BLOOD COUNT 6.4 X10e3 (4.0-10.5)
[2016-09-08 16:23] LABS: DIFF IND NO
[2016-09-08 16:28] LABS: POC - TROPONIN <0.05 ng/mL (<=0.05)
[2016-09-08 17:04] LABS: ALBUMIN SERUM 3.9 g/dL (3.5-5.0); ALKALINE PHOSPHATASE 103 U/L (32-92); ALT (SGPT) 18 U/L (10-40); AST (SGOT) 21 U/L (10-42); BILIRUBIN,TOTAL 0.3 mg/dL (0.2-2.0); BLOOD UREA NITROGEN 9 mg/dL (9-23); CARBON DIOXIDE 26 mmol/L (22-31); CHLORIDE 103 mmol/L (100-111); CREATININE SERUM 0.6 mg/dL (0.6-1.4); GLOM FILT RATE Estimated 144.8 mL/min (>60); GLUCOSE FASTING 199 mg/dL (70-110); PROTEIN TOTAL SERUM 7.4 g/dL (6.0-8.3); SODIUM 136 mmol/L (135-145)
[2016-09-08 17:06] LABS: ALCOHOL BLOOD <5 mg/dL (0); BILIRUBIN, DIRECT <0.1 mg/dL (0.0-0.2); BILIRUBIN,INDIRECT 0.2 mg/dL (0.0-0.9)
[2016-09-08] MEDS ORDERED: METFORMIN PO (19:07)
[2016-09-08] MEDS ORDERED: TRILEPTAL PO (19:07)
[2016-09-09 05:35] LABS: BASOPHIL% 0.4 % (0-2.5); EOSINOPHIL% 0.6 % (0.0-7.0); HEMATOCRIT 35.2 % (35.0-45.0); HEMOGLOBIN 11.2 gm/dL (12.0-16.0); LYMPHOCYTE% 29.2 % (17.0-45.0); MEAN CELL VOLUME 71.1 FL (83-96); MEAN CORPUSCULAR HEMOGLOBIN 22.6 PG (28-34); MEAN CORPUSCULAR HGB CONC 31.9 g/dL (30-36); MEAN PLATELET VOLUME 7.6 FL (6.5-11.5); MONOCYTE# 0.5 X10e3 (0-1.0); MONOCYTE% 6.6 % (3.0-12.0); NEUTROPHIL# 4.4 X10e3 (1.5-7.1); NEUTROPHIL% 63.2 % (40-75); PLATELET COUNT 257 X10e3 (140-420); RED BLOOD COUNT 4.95 X10e (3.90-5.30); RED CELL DISTRIBUTION WIDTH 15.7 % (11.0-15.5); WHITE BLOOD COUNT 6.9 X10e3 (4.0-10.5)
[2016-09-09 05:39] LABS: DIFF IND NO
[2016-09-09 06:57] LABS: BUN/CREATININE RATIO 11.42; CALCIUM SERUM 8.8 mg/dL (8.4-10.2); CREATININE SERUM 0.7 mg/dL (0.6-1.4); GLOM FILT RATE Estimated 137.6 mL/min (>60); POTASSIUM 3.5 mmol/L (3.5-5.1)
== END 2016-09-09 17:04 | disposition home or self-care (01) ==
LOC: CED 14:31 → CEDOF 18:05 → C3A PCU 19:50 → CEDOF 19:50 → CED 19:50 → CEDOF 20:20 → C3A PCU 20:20
PROVIDERS: Emergency Medicine; Internal Medicine
DX: G40.909 Epilepsy, unspecified, not intractable, without status epilepticus (principal); Z79.899 Other long term (current) drug therapy; E11.9 Type 2 diabetes mellitus without complications; Z79.84 Long term (current) use of oral hypoglycemic drugs; J45.909 Unspecified asthma, uncomplicated; E66.9 Obesity, unspecified; Z68.37 Body mass index [BMI] 37.0-37.9, adult; Z79.82 Long term (current) use of aspirin
CPT/HCPCS: 36415; 51701; 70450; 72125; 80048; 80076; 80183; 80307; 81003; 82553; 82947; 84484; 84703; 85025; 93005; 94760; 95816; 96374; 99285; C9254; G0378; G0480; J1885

== ENCOUNTER 2016-10-11 01:35 | Emergency (ER) | payer OTHER ==
[~2016-10-11] VITALS: Ht 157.5 cm; Wt 93.0 kg
--- NOTE | ~2016-10-11 | EKG ---
PATIENT: HUBER PACHECO UNIT #: [id number] Ventricular Rate: 89 BPM Atrial Rate: 89 BPM P-R Interval: 152 ms QRS Duration: 72 ms Q-T Interval: 342 ms QTC Calculation(Bezet): 416 ms P [place]: 46 degrees Calculated R [place]: 44 degrees Calculated T [place]: 37 degrees Diagnosis Line: Normal sinus rhythm Diagnosis Line: Normal ECG Diagnosis Line: When compared with ECG of 08-SEP-2016 16:43, Diagnosis Line: No significant change was found Diagnosis Line: Confirmed by LEELEE BERNARD MD ([id number]) on Diagnosis Line: 10/13/2016 8:06:21 PM INTERPRETING MD: BEE
--- NOTE | ~2016-10-11 | CR72 ---
[facility] A Service of [facility] & [facility] RADIOLOGY TEXT RESULTS PATIENT: HUBER PACHECO LOCATION: [facility] : [birth year] UNIT #: [id number] AGE: [address]: SUMANTH PULIDO APRN SEX: F ORDER DR: [id number] [facility] [address] [place], [place] [address] [id number] E MR#: [id number] Acc #: [id number] NAME: HUBER PACHECO : 1990 SEX: F STUDY DATE/TIME: 10/11/2016 03:32 UNIT: [facility] ROOM: STUDY DESCRIPTION: CR Chest Single View Portable Attending Physician: Sumanth Pulido Aprn Ordering Physician: Sumanth Pulido Aprn Primary Care Physician: [facility] MEDICAL IMAGING REPORT This report is preliminary unless electronic signature is present EXAM Portable chest, 10/11 at 03:32 INDICATION Chest pain, wheezing today. History of asthma. COMPARISON 09/03/2016 FINDINGS A single AP portable view of the chest shows both lungs to be clear. The heart is normal in size. The mediastinal contour is normal. No significant bone abnormalities are seen. IMPRESSION Normal portable chest. Dictated by... Shahzad Patton Jr., M.D. THIS IS AN ELECTRONICALLY VERIFIED REPORT Shahzad Patton Jr., M.D. at 10/11/2016 8:51 PM RIGO/jonatan TD: 10/11/2016 12:35 JOB #: [id number] MEDICAL IMAGING REPORT Page 1 of 1 COPY
[~2016-10-11 01:35] MED LIST: METFORMIN PO; TRILEPTAL PO
[2016-10-11 03:55] LABS: POC - CKMB <1.0 ng/mL (0.0-7.9); POC - TROPONIN <0.05 ng/mL (<=0.05)
[2016-10-11 04:31] LABS: BUN/CREATININE RATIO 7.77; CALCIUM SERUM 9.2 mg/dL (8.4-10.2); CREATININE SERUM 0.9 mg/dL (0.6-1.4); GLOM FILT RATE Estimated 101.6 mL/min (>60)
== END 2016-10-11 05:00 | disposition home or self-care (01) ==
LOC: CED 01:35
PROVIDERS: Nurse Practitioner Family
DX: R07.9 Chest pain, unspecified (principal); K21.9 Gastro-esophageal reflux disease without esophagitis; F41.9 Anxiety disorder, unspecified; J45.909 Unspecified asthma, uncomplicated; Z79.899 Other long term (current) drug therapy
CPT/HCPCS: 36415; 71010; 80048; 82553; 84484; 84703; 93005; 99285

== ENCOUNTER 2016-10-22 00:22 | Emergency (ER) | payer OTHER | END 2016-10-22 01:44 | disposition home or self-care (01) | LOC: CED 00:22 | DX: J06.9 Acute upper respiratory infection, unspecified (principal); H66.91 Otitis media, unspecified, right ear; E11.9 Type 2 diabetes mellitus without complications; J45.909 Unspecified asthma, uncomplicated | CPT/HCPCS: 99283 ==

== ENCOUNTER 2016-10-23 14:25 | Emergency (ER) | payer OTHER ==
[~2016-10-23] VITALS: Ht 157.5 cm; Wt 93.0 kg
--- NOTE | ~2016-10-23 | CR72 ---
[facility] A Service of [facility] & [facility] RADIOLOGY TEXT RESULTS PATIENT: HUBER PACHECO LOCATION: [facility] : [birth year] UNIT #: [id number] AGE: [address]: Mo Cowart MD SEX: F ORDER DR: [id number] [facility] [address] [place], [place] [address] [id number] E MR#: [id number] Acc #: [id number] NAME: HUBER PACHECO : 1990 SEX: F STUDY DATE/TIME: 10/23/2016 15:41 UNIT: [facility] ROOM: STUDY DESCRIPTION: CR Chest Single View Portable Attending Physician: Mo Cowart M.D. Ordering Physician: Mo Cowart M.D. Primary Care Physician: [facility] MEDICAL IMAGING REPORT This report is preliminary unless electronic signature is present EXAM Portable chest x-ray, 10/23/2016 HISTORY Chest pain. Left side chest pain 3 days. FINDINGS AP slightly right anterior oblique view of the chest is presented. Comparison 10/11/2016. The lungs are moderately well inflated without evidence of acute pulmonary disease. There is no pleural effusion or pneumothorax. The heart and mediastinum are normal in size and contour given obliquity. No acute-appearing bony abnormality. Dictated by... Elmer Rowley M.D. THIS IS AN ELECTRONICALLY VERIFIED REPORT Elmer Rowley M.D. at 10/27/2016 10:43 AM PENELOPE/miah TD: 10/23/2016 21:38 JOB #: [id number] MEDICAL IMAGING REPORT Page 1 of 1 COPY
--- NOTE | ~2016-10-23 | EKG ---
PATIENT: HUBER PACHECO UNIT #: [id number] Ventricular Rate: 80 BPM Atrial Rate: 80 BPM P-R Interval: 158 ms QRS Duration: 90 ms Q-T Interval: 368 ms QTC Calculation(Bezet): 424 ms P [place]: 42 degrees Calculated R [place]: 30 degrees Calculated T [place]: 19 degrees Diagnosis Line: Normal sinus rhythm Diagnosis Line: Normal ECG Diagnosis Line: When compared with ECG of 11-OCT-2016 01:41, Diagnosis Line: No significant change was found Diagnosis Line: Confirmed by RALPH TURNER MD ([id number]) on 10/25/2016 Diagnosis Line: 8:22:30 AM INTERPRETING MD: YUE DELA CRUZ
[2016-10-23 15:48] LABS: BASOPHIL% 0.4 % (0-2.5); DIFF IND NO; EOSINOPHIL# 0.1 X10e3 (0-0.7); EOSINOPHIL% 1.7 % (0.0-7.0); HEMATOCRIT 35.5 % (35.0-45.0); HEMOGLOBIN 11.4 gm/dL (12.0-16.0); LYMPHOCYTE# 1.4 X10e3 (1.0-3.5); LYMPHOCYTE% 26.6 % (17.0-45.0); MEAN CELL VOLUME 70.6 FL (83-96); MEAN CORPUSCULAR HEMOGLOBIN 22.6 PG (28-34); MEAN PLATELET VOLUME 7.1 FL (6.5-11.5); MONOCYTE# 0.3 X10e3 (0-1.0); MONOCYTE% 6.1 % (3.0-12.0); NEUTROPHIL# 3.3 X10e3 (1.5-7.1); NEUTROPHIL% 65.2 % (40-75); PLATELET COUNT 287 X10e3 (140-420); RED BLOOD COUNT 5.03 X10e (3.90-5.30); RED CELL DISTRIBUTION WIDTH 14.9 % (11.0-15.5); WHITE BLOOD COUNT 5.1 X10e3 (4.0-10.5)
[2016-10-23 15:53] LABS: POC - CKMB 1.1 ng/mL (0.0-7.9); POC - TROPONIN <0.05 ng/mL (<=0.05)
[2016-10-23 16:04] LABS: PARTIAL THROMBOPLASTIN TIME 26.6 SECONDS (23.5-31.3); PROTHROMBIN TIME (PATIENT) 10.8 SECONDS (10.0-11.7)
[2016-10-23 16:15] LABS: ALBUMIN SERUM 3.8 g/dL (3.5-5.0); ALKALINE PHOSPHATASE 134 U/L (32-92); ALT (SGPT) 26 U/L (10-40); AST (SGOT) 28 U/L (10-42); BILIRUBIN,TOTAL 0.2 mg/dL (0.2-2.0); BLOOD UREA NITROGEN 7 mg/dL (9-23); CALCIUM SERUM 8.9 mg/dL (8.4-10.2); CARBON DIOXIDE 29 mmol/L (22-31); CHLORIDE 98 mmol/L (100-111); CREATININE SERUM 0.7 mg/dL (0.6-1.4); GLOM FILT RATE Estimated 136.7 mL/min (>60); GLUCOSE FASTING 187 mg/dL (70-110); POTASSIUM 3.9 mmol/L (3.5-5.1); PROTEIN TOTAL SERUM 7.5 g/dL (6.0-8.3); SODIUM 135 mmol/L (135-145)
[2016-10-23 16:21] LABS: BILIRUBIN, DIRECT <0.1 mg/dL (0.0-0.2); BILIRUBIN,INDIRECT 0.1 mg/dL (0.0-0.9)
== END 2016-10-23 17:30 | disposition home or self-care (01) ==
LOC: CED 14:25
PROVIDERS: Emergency Medicine
DX: R09.1 Pleurisy (principal); J45.909 Unspecified asthma, uncomplicated; Z79.899 Other long term (current) drug therapy
CPT/HCPCS: 36415; 71010; 80048; 80076; 82553; 84484; 84703; 85025; 85379; 85610; 85730; 93005; 99285

== ENCOUNTER 2016-11-08 16:49 | Emergency (ER) | payer OTHER ==
[~2016-11-08] VITALS: Ht 157.5 cm; Wt 92.1 kg
--- NOTE | ~2016-11-08 | EKG ---
PATIENT: HUBER PACHECO UNIT #: [id number] Ventricular Rate: 79 BPM Atrial Rate: 79 BPM P-R Interval: 156 ms QRS Duration: 84 ms Q-T Interval: 360 ms QTC Calculation(Bezet): 412 ms P [place]: 54 degrees Calculated R [place]: 45 degrees Calculated T [place]: 30 degrees Diagnosis Line: Normal sinus rhythm Diagnosis Line: ST elevation, consider early repolarization, Diagnosis Line: pericarditis, or injury Diagnosis Line: Abnormal ECG Diagnosis Line: When compared with ECG of 23-OCT-2016 14:36, Diagnosis Line: No significant change was found Diagnosis Line: Confirmed by RALPH TURNER MD ([id number]) on 11/09/2016 Diagnosis Line: 5:58:53 PM INTERPRETING MD: YUE DELA CRUZ
--- NOTE | ~2016-11-08 | CR181 ---
[facility] A Service of [facility] RADIOLOGY TEXT RESULTS PATIENT: HUBER PACHECO LOCATION: [facility] : [birth year] UNIT #: [id number] AGE: [address]: Kash Rob MD SEX: F ORDER DR: [id number] [facility] [address] [place], [place] [address] [id number] E MR#: [id number] Acc #: [id number] NAME: HUBER PACHECO : 1990 SEX: F STUDY DATE/TIME: 11/08/2016 18:51 UNIT: [facility] ROOM: STUDY DESCRIPTION: CR Lumbar Spine 2 or 3 Views Attending Physician: Kash Rob M.D. Ordering Physician: Kash Rob M.D. Primary Care Physician: [facility] MEDICAL IMAGING REPORT This report is preliminary unless electronic signature is present EXAM 3 views lumbar spine. DATE 11/08/2016 HISTORY Lumbar spine pain with numbness and tingling in the left leg. Pain is chronic for numerous years, but numbness and tingling has been present for 1 week. No known trauma. COMPARISON None. FINDINGS AP and lateral projections of the lumbar segment show good mineralization of both anterior and posterior elements. They are all anatomically normal without indication of fracture, dislocation, or malignant change of a sclerotic or lytic type. There is no congenital defect noted. The sacroiliac joints are normal. IMPRESSION Normal lumbar spine. Dictated by... Caroline Vasquez M.D. THIS IS AN ELECTRONICALLY VERIFIED REPORT Caroline Vasquez M.D. at 11/09/2016 2:03 PM LLH/kayer TD: 11/09/2016 01:44 [facility] A Service of [facility] RADIOLOGY TEXT RESULTS PATIENT: HUBER PACHECO LOCATION: [facility] : [birth year] UNIT #: [id number] AGE: [address]: Kash Rob MD SEX: F ORDER DR: JOB #: [id number] MEDICAL IMAGING REPORT Page 1 of 1 COPY
[2016-11-08 18:55] LABS: BASOPHIL% 0.4 % (0-2.5); EOSINOPHIL% 0.5 % (0.0-7.0); HEMATOCRIT 36.2 % (35.0-45.0); HEMOGLOBIN 11.5 gm/dL (12.0-16.0); LYMPHOCYTE% 25.4 % (17.0-45.0); MEAN CELL VOLUME 70.1 FL (83-96); MEAN CORPUSCULAR HEMOGLOBIN 22.4 PG (28-34); MEAN CORPUSCULAR HGB CONC 31.9 g/dL (30-36); MEAN PLATELET VOLUME 7.6 FL (6.5-11.5); MONOCYTE# 0.4 X10e3 (0-1.0); MONOCYTE% 5.8 % (3.0-12.0); NEUTROPHIL# 5.2 X10e3 (1.5-7.1); NEUTROPHIL% 67.9 % (40-75); PLATELET COUNT 269 X10e3 (140-420); RED BLOOD COUNT 5.16 X10e (3.90-5.30); RED CELL DISTRIBUTION WIDTH 15.5 % (11.0-15.5); WHITE BLOOD COUNT 7.7 X10e3 (4.0-10.5)
[2016-11-08 18:57] LABS: DIFF IND NO
[2016-11-08 19:00] LABS: POC - CKMB <1.0 ng/mL (0.0-7.9); POC - TROPONIN <0.05 ng/mL (<=0.05)
[2016-11-08 19:04] LABS: BUN/CREATININE RATIO 11.11; CREATININE SERUM 0.9 mg/dL (0.6-1.4); GLOM FILT RATE Estimated 100.9 mL/min (>60); POTASSIUM 4.2 mmol/L (3.5-5.1)
[2016-11-08 19:39] LABS: URINE SOURCE CLEAN CATCH
[2016-11-08 19:50] LABS: URINE APPEARANCE CLEAR; URINE BILIRUBIN NEG (NEG); URINE BLOOD NEG (NEG); URINE COLOR YELLOW; URINE GLUCOSE >1000 MG/DL (NEG); URINE KETONE NEG (NEG); URINE LEUKOCYTE ESTERASE NEG (NEG); URINE NITRATE NEG (NEG); URINE PROTEIN NEG (NEG); URINE SPECIFIC GRAVITY 1.018 (1.003-1.035); URINE UROBILINOGEN 0.2 MG/DL (NEG)
[2016-11-08 20:03] LABS: CULTURE INDICATED? NO
== END 2016-11-08 20:39 | disposition home or self-care (01) ==
LOC: CED 16:49
PROVIDERS: Emergency Medicine
DX: G40.909 Epilepsy, unspecified, not intractable, without status epilepticus (principal); E11.9 Type 2 diabetes mellitus without complications; F41.9 Anxiety disorder, unspecified; J45.909 Unspecified asthma, uncomplicated
CPT/HCPCS: 72100; 80048; 81003; 82553; 82947; 84484; 85025; 93005; 99284

== ENCOUNTER 2016-11-20 16:31 | Emergency (ER) | payer OTHER ==
[~2016-11-20] VITALS: Ht 157.5 cm; Wt 92.5 kg
[2016-11-20 19:32] LABS: URINE SOURCE CLEAN CATCH
[2016-11-20 19:36] LABS: EOSINOPHIL# 0.1 X10e3 (0-0.7); EOSINOPHIL% 1.3 % (0.0-7.0); HEMATOCRIT 36.6 % (35.0-45.0); HEMOGLOBIN 11.9 gm/dL (12.0-16.0); LYMPHOCYTE# 1.7 X10e3 (1.0-3.5); LYMPHOCYTE% 32.2 % (17.0-45.0); MEAN CELL VOLUME 70.4 FL (83-96); MEAN CORPUSCULAR HEMOGLOBIN 22.9 PG (28-34); MEAN CORPUSCULAR HGB CONC 32.5 g/dL (30-36); MEAN PLATELET VOLUME 7.4 FL (6.5-11.5); MONOCYTE# 0.3 X10e3 (0-1.0); MONOCYTE% 6.3 % (3.0-12.0); NEUTROPHIL% 59.2 % (40-75); PLATELET COUNT 315 X10e3 (140-420); RED BLOOD COUNT 5.19 X10e (3.90-5.30); RED CELL DISTRIBUTION WIDTH 15.3 % (11.0-15.5); WHITE BLOOD COUNT 5.2 X10e3 (4.0-10.5)
[2016-11-20 19:42] LABS: DIFF IND NO
[2016-11-20 19:42] LABS: URINE APPEARANCE CLOUDY; URINE BILIRUBIN NEG (NEG); URINE BLOOD NEG (NEG); URINE COLOR YELLOW; URINE GLUCOSE 250 MG/DL (NEG); URINE KETONE NEG (NEG); URINE LEUKOCYTE ESTERASE NEG (NEG); URINE NITRATE NEG (NEG); URINE PROTEIN NEG (NEG); URINE SPECIFIC GRAVITY 1.018 (1.003-1.035); URINE UROBILINOGEN 0.2 MG/DL (NEG)
[2016-11-20 19:53] LABS: CULTURE INDICATED? NO
[2016-11-20 20:01] LABS: ALBUMIN SERUM 4.1 g/dL (3.5-5.0); ALKALINE PHOSPHATASE 122 U/L (32-92); ALT (SGPT) 22 U/L (10-40); AST (SGOT) 30 U/L (10-42); BILIRUBIN,TOTAL 0.3 mg/dL (0.2-2.0); BLOOD UREA NITROGEN 6 mg/dL (9-23); CALCIUM SERUM 9.2 mg/dL (8.4-10.2); CARBON DIOXIDE 27 mmol/L (22-31); CHLORIDE 101 mmol/L (100-111); CREATININE SERUM 0.8 mg/dL (0.6-1.4); GLOM FILT RATE Estimated 116.4 mL/min (>60); GLUCOSE FASTING 126 mg/dL (70-110); POTASSIUM 3.8 mmol/L (3.5-5.1); PROTEIN TOTAL SERUM 7.8 g/dL (6.0-8.3); SODIUM 139 mmol/L (135-145)
[2016-11-20 20:01] LABS: AMPHETAMINE NEG (NEG); BARBITURATES NEG (NEG); BENZODIAZEPINES NEG (NEG); COCAINE NEG (NEG); MARIJUANA NEG (NEG); OPIATES NEG (NEG); TRICYCLIC ANTIDEPRESSANTS NEG (NEG); U METHADONE NEG (NEG)
[2016-11-20 20:04] LABS: ALCOHOL BLOOD <5 mg/dL (0); BILIRUBIN, DIRECT <0.1 mg/dL (0.0-0.2); BILIRUBIN,INDIRECT 0.2 mg/dL (0.0-0.9)
== END 2016-11-20 22:01 | disposition home or self-care (01) ==
LOC: CED 16:31
PROVIDERS: Emergency Medicine
DX: G40.909 Epilepsy, unspecified, not intractable, without status epilepticus (principal); E11.9 Type 2 diabetes mellitus without complications; J45.909 Unspecified asthma, uncomplicated
CPT/HCPCS: 36415; 80048; 80076; 80307; 81003; 84703; 85025; 96374; 99285; G0480; J1953

== ENCOUNTER 2016-12-02 04:43 | Emergency (ER) | payer OTHER | END 2016-12-02 06:47 | disposition home or self-care (01) | LOC: CED 04:43 | DX: R56.9 Unspecified convulsions (principal); J06.9 Acute upper respiratory infection, unspecified; J45.909 Unspecified asthma, uncomplicated | CPT/HCPCS: 99284 ==